=== PATIENT | female | born 1985 | race Caucasian/White ===

== ENCOUNTER 2021-02-16 13:38 | Inpatient (IN) | payer OTHER ==
[2021-02-16] MEDS ORDERED: ONDANSETRON 4 MG/2 ML VIAL IVPUSH ONE (15:51)
[2021-02-16] MEDS ORDERED: MAG HYDROX/AL HYDROX/SIMETH -MYLANTA- ORAL SUSPENSION PO ONE (15:51)
[2021-02-16] MEDS ORDERED: ONDANSETRON *ODT* 4 MG TABLET SL PRN (15:57)
[2021-02-16] MEDS ORDERED: ACETAMINOPHEN 325 MG TABLET (FP) PO PRN ×2 (15:57)
[2021-02-16] MEDS ORDERED: MENTHOL/PHENOL 1 EACH UD MM PRN (15:57)
[2021-02-16] MEDS ORDERED: MAGNESIUM CITRATE 300 ML BOTTLE PO PRN (15:57)
[2021-02-16] MEDS ORDERED: NICOTINE 10 MG CARTRIDGE (INHALER) IH PRN (15:57)
[2021-02-16] MEDS ORDERED: MAGNESIUM HYDROX 2400MG/30ML ORAL SUSPENSION 30 ML CUP PO PRN (15:57)
[2021-02-16] MEDS ORDERED: cloNIDine HCL 0.1 MG TABLET PO PRN (15:57)
[2021-02-16] MEDS ORDERED: BISMUTH SUBSALICYLATE 524 MG/30 ML PO PRN (15:57)
[2021-02-16] MEDS ORDERED: methaDONE HCL 10 MG TABLET (FOR DETOX USE ONLY) PO ONE ×2 (15:57→21:00)
[2021-02-16] MEDS ORDERED: MAG HYDROX/AL HYDROX/SIMETH 30 ML UNIT-DOSE CUP PO PRN (15:57)
[2021-02-16] MEDS ORDERED: NALOXONE (NARCAN) HCL 4 MG/0.1 ML SPRAY NS PRN (15:57)
[2021-02-16 17:15] VITALS: BMI 35.9
[2021-02-16] MEDS ORDERED: METOCLOPRAMIDE HCL INJECTION 10 MG/2 ML VIAL IM ONE (18:32)
[2021-02-16] MEDS: hydrOXYzine PAMOATE 25 MG CAPSULE (FP) PO SCH ×2 (21:02→21:09)
[2021-02-16] MEDS: THIAMINE HCL 100 MG TABLET (FP) PO SCH (21:09)
[2021-02-16] MEDS ORDERED: MELATONIN 5 MG TABLETS PO SCH (22:00)
[2021-02-17] MEDS: hydrOXYzine PAMOATE 25 MG CAPSULE (FP) PO SCH (05:20)
[2021-02-17] MEDS: METHOCARBAMOL 500 MG TABLET PO PRN ×3 (05:20→17:50)
[2021-02-17] MEDS: IBUPROFEN 400 MG TABLET (FP) PO PRN ×2 (07:45→22:02)
[2021-02-17] MEDS ORDERED: methaDONE HCL 10 MG TABLET (FOR DETOX USE ONLY) ONE (09:05)
[2021-02-17] MEDS: SERTRALINE HCL 50 MG TABLET (FP) PO SCH (09:59)
[2021-02-17] MEDS: lamoTRIgine 25 MG TABLET PO SCH (09:59)
[2021-02-17 10:34] LABS: HEMATOCRIT 42.5 % (32.4-45.2); HEMOGLOBIN 14.1 GM/dL (10.7-15.3); MCH 28.2 pg (25.7-33.7); MCHC 33.2 g/dl (32.0-36.0); MEAN PLT VOLUME 8.1 fl (7.5-11.1); PLATELET COUNT 314 10^3/uL (134-434); RDW 15.7 % (11.6-15.6); WHITE BLOOD COUNT 9.6 K/mm3 (4.0-10.0)
[2021-02-17] MEDS: hydrOXYzine PAMOATE 50 MG CAPSULE (FP) PO PRN ×3 (10:34→22:01)
[2021-02-17 10:52] LABS: CALCIUM 10.2 mg/dL (8.5-10.1)
[2021-02-17 10:53] LABS: ALBUMIN 4.2 g/dl (3.4-5.0); BLOOD UREA NITROGEN 20.4 mg/dL (7-18)
[2021-02-17 10:57] LABS: BILIRUBIN,TOTAL 1.1 mg/dL (0.2-1); TOT PROT 7.6 g/dl (6.4-8.2)
[2021-02-17] MEDS ORDERED: FLU VACC QS2021-22(6MOS UP)/PF 60 MCG/0.5 ML SYRINGE IM ONE (12:00)
[2021-02-17] MEDS: GABAPENTIN 300 MG CAPSULE PO SCH ×2 (14:00→22:01)
[2021-02-17] MEDS: QUEtiapine FUMARATE 300 MG TABLET PO SCH (22:01)
[2021-02-17] MEDS: THIAMINE HCL 100 MG TABLET (FP) PO SCH (22:01)
[2021-02-18] MEDS: GABAPENTIN 300 MG CAPSULE PO SCH ×3 (05:44→21:58)
[2021-02-18] MEDS ORDERED: methaDONE HCL 10 MG TABLET (FOR DETOX USE ONLY) PO ONE (10:00)
[2021-02-18] MEDS: SERTRALINE HCL 50 MG TABLET (FP) PO SCH (10:35)
[2021-02-18] MEDS: hydrOXYzine PAMOATE 50 MG CAPSULE (FP) PO PRN (10:35)
[2021-02-18] MEDS: METHOCARBAMOL 500 MG TABLET PO PRN (10:35)
[2021-02-18] MEDS: lamoTRIgine 25 MG TABLET PO SCH (12:31)
[2021-02-18] MEDS: THIAMINE HCL 100 MG TABLET (FP) PO SCH (21:58)
[2021-02-18] MEDS: QUEtiapine FUMARATE 300 MG TABLET PO SCH (21:58)
[2021-02-19] MEDS: GABAPENTIN 300 MG CAPSULE PO SCH ×3 (05:53→22:02)
[2021-02-19] MEDS ORDERED: methaDONE HCL 10 MG TABLET (FOR DETOX USE ONLY) ONE (09:54)
[2021-02-19] MEDS: lamoTRIgine 25 MG TABLET PO SCH (10:18)
[2021-02-19] MEDS: hydrOXYzine PAMOATE 50 MG CAPSULE (FP) PO PRN ×2 (10:19→17:26)
[2021-02-19] MEDS: METHOCARBAMOL 500 MG TABLET PO PRN (10:20)
[2021-02-19] MEDS: SERTRALINE HCL 50 MG TABLET (FP) PO SCH (10:20)
[2021-02-19] MEDS ORDERED: POTASSIUM CHLORIDE ORAL LIQUID 20 MEQ/15 ML PO ONE ×3 (12:00→19:30)
[2021-02-19] MEDS ORDERED: POTASSIUM CHLORIDE TABS 20 MEQ TABLET.ER (FP) PO ONE (15:08)
[2021-02-19] MEDS: diazePAM 5 MG TABLET PO PRN ×2 (15:30→22:01)
[2021-02-19] MEDS: THIAMINE HCL 100 MG TABLET (FP) PO SCH (22:02)
[2021-02-19] MEDS: QUEtiapine FUMARATE 300 MG TABLET PO SCH (22:02)
[2021-02-20] MEDS: GABAPENTIN 300 MG CAPSULE PO SCH ×3 (06:27→22:06)
[2021-02-20] MEDS ORDERED: methaDONE HCL 10 MG TABLET (FOR DETOX USE ONLY) PO ONE (10:00)
[2021-02-20] MEDS: SERTRALINE HCL 50 MG TABLET (FP) PO SCH (10:34)
[2021-02-20] MEDS: lamoTRIgine 25 MG TABLET PO SCH (10:35)
[2021-02-20] MEDS: diazePAM 5 MG TABLET PO PRN ×2 (12:14→22:07)
[2021-02-20] MEDS: THIAMINE HCL 100 MG TABLET (FP) PO SCH (22:06)
[2021-02-20] MEDS: QUEtiapine FUMARATE 300 MG TABLET PO SCH (22:06)
[2021-02-21] MEDS: GABAPENTIN 300 MG CAPSULE PO SCH (05:55)
[2021-02-21 06:38] VITALS: BP 106/65; PULSE 70; TEMP 97.3
== END 2021-02-21 10:41 | disposition home or self-care (01) | DRG 773 ==
LOC: YASAS 13:38 → Y6N 18:08
PROVIDERS: ADMIT Allergy & Immunology; ATTEND Allergy & Immunology
PROC: HZ2ZZZZ Detoxification Services for Substance Abuse Treatment (ICD-10-PCS; principal; 2021-02-16)
DX: F11.23 Opioid dependence with withdrawal (principal); F12.20 Cannabis dependence, uncomplicated; F17.210 Nicotine dependence, cigarettes, uncomplicated; F31.9 Bipolar disorder, unspecified; F19.280 Other psychoactive substance dependence with psychoactive substance-induced anxiety disorder; F19.282 Other psychoactive substance dependence with psychoactive substance-induced sleep disorder; K21.9 Gastro-esophageal reflux disease without esophagitis; M54.30 Sciatica, unspecified side; R79.89 Other specified abnormal findings of blood chemistry; Z62.810 Personal history of physical and sexual abuse in childhood; E66.9 Obesity, unspecified; Z68.35 Body mass index [BMI] 35.0-35.9, adult; Z91.410 Personal history of adult physical and sexual abuse; Z88.0 Allergy status to penicillin; Z59.01 Sheltered homelessness; Z56.0 Unemployment, unspecified
CPT/HCPCS: 36415; 71046-TC-FY; 80053; 81025; 84132; 85027; 86780; 90686; 93005; 93010; C9803; G0008; Q0162; U0003; U0005

== ENCOUNTER 2022-07-11 17:31 | Inpatient (IN) | payer OTHER ==
[2022-07-11 17:51] VITALS: BMI 39.5
[2022-07-11] MEDS ORDERED: DICYCLOMINE HCL 10 MG CAPSULE PO PRN (18:30)
[2022-07-11] MEDS ORDERED: MAGNESIUM HYDROX 2400MG/30ML ORAL SUSPENSION 30 ML CUP PO PRN (18:30)
[2022-07-11] MEDS ORDERED: MAG HYDROX/AL HYDROX/SIMETH 30 ML UNIT-DOSE CUP PO PRN (18:30)
[2022-07-11] MEDS ORDERED: IBUPROFEN 600 MG TABLET (FP) PO PRN (18:30)
[2022-07-11] MEDS ORDERED: BENZOCAINE/MENTHOL (CHLORASEPTIC ) LOZENGE MM PRN (18:30)
[2022-07-11] MEDS ORDERED: methaDONE HCL 10 MG TABLET (FOR DETOX USE ONLY) PO ONE (18:30)
[2022-07-11] MEDS ORDERED: LOPERAMIDE HCL 2 MG CAPSULE PO PRN (18:30)
[2022-07-11] MEDS ORDERED: IBUPROFEN 400 MG TABLET (FP) PO PRN (18:30)
[2022-07-11] MEDS ORDERED: ACETAMINOPHEN 325 MG TABLET (FP) PO PRN (18:30)
[2022-07-11] MEDS ORDERED: BISMUTH SUBSALICYLATE 524 MG/30 ML PO PRN (18:30)
[2022-07-11] MEDS ORDERED: NALOXONE HCL (KLOXXADO) 8 MG SPRAY NS PRN (18:30)
[2022-07-11] MEDS ORDERED: POLYETHYLENE GLYCOL (HEALTHYLAX) 3350 17 GM PACKET PO PRN (18:30)
[2022-07-11] MEDS ORDERED: ACETAMINOPHEN 325 MG TABLET (FP) ONE (19:07)
[2022-07-11] MEDS ORDERED: methaDONE HCL 10 MG TABLET (FOR DETOX USE ONLY) ONE (19:33)
[2022-07-11] MEDS: MELATONIN 5 MG TABLETS PO SCH (22:05)
[2022-07-11] MEDS: THIAMINE HCL 100 MG TABLET (FP) PO SCH (22:05)
[2022-07-12] MEDS: ACETAMINOPHEN 325 MG TABLET (FP) PO PRN (04:54)
[2022-07-12] MEDS: BACITRACIN ZINC 15 GM TUBE TOPICAL OINTMENT TP SCH (10:50)
[2022-07-12] MEDS: PRENATAL VITAMINS W/ FOLIC ACID TABLET (FP) PO SCH (10:51)
[2022-07-12 14:21] LABS: HEMATOCRIT 42.1 % (32.4-45.2); HEMOGLOBIN 13.4 GM/dL (10.7-15.3); MCH 26.6 pg (25.7-33.7); MCHC 31.8 g/dl (32.0-36.0); MEAN CELL VOLUME 83.5 fl (80-96); MEAN PLT VOLUME 8.9 fl (7.5-11.1); PLATELET COUNT 278 10^3/uL (134-434); RBC 5.04 M/mm3 (3.60-5.2); RDW 15.4 % (11.6-15.6); WHITE BLOOD COUNT 8.4 K/mm3 (4.0-10.0)
[2022-07-12 15:02] LABS: CALCIUM 9.5 mg/dL (8.5-10.1)
[2022-07-12 15:03] LABS: ALBUMIN 3.5 g/dl (3.4-5.0)
[2022-07-12 15:05] LABS: CREATININE 0.8 mg/dL (0.55-1.3)
[2022-07-12 15:07] LABS: BILIRUBIN,TOTAL 0.6 mg/dL (0.2-1); TOT PROT 6.4 g/dl (6.4-8.2)
[2022-07-12 15:10] LABS: BLOOD UREA NITROGEN 11.8 mg/dL (7-18)
[2022-07-12] MEDS: THIAMINE HCL 100 MG TABLET (FP) PO SCH (22:08)
[2022-07-12] MEDS: MELATONIN 5 MG TABLETS PO SCH (22:08)
[2022-07-12] MEDS: cloNIDine HCL 0.1 MG TABLET PO PRN (22:09)
[2022-07-12] MEDS: METHOCARBAMOL 500 MG TABLET PO PRN (22:09)
[2022-07-13] MEDS: cloNIDine HCL 0.1 MG TABLET PO PRN (07:42)
[2022-07-13] MEDS ORDERED: methaDONE HCL 10 MG TABLET (FOR DETOX USE ONLY) PO ONE (10:00)
[2022-07-13] MEDS: PRENATAL VITAMINS W/ FOLIC ACID TABLET (FP) PO SCH (10:20)
[2022-07-13] MEDS: METHOCARBAMOL 500 MG TABLET PO PRN ×2 (10:21→16:58)
[2022-07-13] MEDS: BACITRACIN ZINC 15 GM TUBE TOPICAL OINTMENT TP SCH (10:53)
[2022-07-13] MEDS: GABAPENTIN 400 MG CAPSULE PO SCH ×2 (13:02→22:00)
[2022-07-13] MEDS: ACETAMINOPHEN 325 MG TABLET (FP) PO PRN (14:46)
[2022-07-13] MEDS ORDERED: QUEtiapine FUMARATE 100 MG TABLET (FP) PO SCH (22:00)
[2022-07-13] MEDS: MELATONIN 5 MG TABLETS PO SCH (22:00)
[2022-07-13] MEDS: THIAMINE HCL 100 MG TABLET (FP) PO SCH (22:01)
[2022-07-14] MEDS: GABAPENTIN 400 MG CAPSULE PO SCH ×3 (05:33→21:24)
[2022-07-14] MEDS: PRENATAL VITAMINS W/ FOLIC ACID TABLET (FP) PO SCH (10:15)
[2022-07-14] MEDS: BACITRACIN ZINC 15 GM TUBE TOPICAL OINTMENT TP SCH (10:18)
[2022-07-14] MEDS: METHOCARBAMOL 500 MG TABLET PO PRN ×2 (15:20→21:00)
[2022-07-14] MEDS: NICOTINE 10 MG CARTRIDGE (INHALER) IH PRN (16:31)
[2022-07-14] MEDS: THIAMINE HCL 100 MG TABLET (FP) PO SCH (21:24)
[2022-07-14] MEDS: QUEtiapine FUMARATE 50 MG TABLET PO SCH (21:26)
[2022-07-14] MEDS: MELATONIN 5 MG TABLETS PO SCH (21:26)
[2022-07-15] MEDS: GABAPENTIN 400 MG CAPSULE PO SCH ×3 (05:49→22:08)
[2022-07-15] MEDS: METHOCARBAMOL 500 MG TABLET PO PRN ×2 (09:58→16:26)
[2022-07-15] MEDS: PRENATAL VITAMINS W/ FOLIC ACID TABLET (FP) PO SCH (09:58)
[2022-07-15] MEDS: BACITRACIN ZINC 15 GM TUBE TOPICAL OINTMENT TP SCH (10:00)
[2022-07-15] MEDS ORDERED: methaDONE HCL 10 MG TABLET (FOR DETOX USE ONLY) PO ONE (10:00)
[2022-07-15] MEDS: NICOTINE 10 MG CARTRIDGE (INHALER) IH PRN (17:51)
[2022-07-15] MEDS: THIAMINE HCL 100 MG TABLET (FP) PO SCH (22:07)
[2022-07-15] MEDS: QUEtiapine FUMARATE 50 MG TABLET PO SCH (22:07)
[2022-07-15] MEDS: MELATONIN 5 MG TABLETS PO SCH (22:08)
[2022-07-16] MEDS: GABAPENTIN 400 MG CAPSULE PO SCH ×2 (05:41→13:48)
[2022-07-16] MEDS: PRENATAL VITAMINS W/ FOLIC ACID TABLET (FP) PO SCH (10:54)
[2022-07-16] MEDS: BACITRACIN ZINC 15 GM TUBE TOPICAL OINTMENT TP SCH (10:54)
[2022-07-16 13:08] VITALS: BP 109/63; PULSE 84; RESP 17; TEMP 97.3
== END 2022-07-16 14:53 | disposition home or self-care (01) | DRG 773 ==
LOC: YASAS 17:31 → Y6N 18:45
PROVIDERS: ADMIT Allergy & Immunology; ATTEND Surgery
PROC: HZ2ZZZZ Detoxification Services for Substance Abuse Treatment (ICD-10-PCS; principal; 2022-07-11)
DX: F11.23 Opioid dependence with withdrawal (principal); F14.20 Cocaine dependence, uncomplicated; F17.210 Nicotine dependence, cigarettes, uncomplicated; F31.9 Bipolar disorder, unspecified; K21.9 Gastro-esophageal reflux disease without esophagitis; M54.40 Lumbago with sciatica, unspecified side; G89.29 Other chronic pain; G40.909 Epilepsy, unspecified, not intractable, without status epilepticus; Z62.810 Personal history of physical and sexual abuse in childhood; E66.9 Obesity, unspecified; Z68.39 Body mass index [BMI] 39.0-39.9, adult; Z91.410 Personal history of adult physical and sexual abuse; Z88.0 Allergy status to penicillin; Z59.01 Sheltered homelessness; Z56.0 Unemployment, unspecified
CPT/HCPCS: 36415; 71046-TC-FY; 80053; 81025; 83036; 85027; 86780; C9803-CS; U0003; U0005